=== PATIENT | female | born 1995 | race Two or more races ===

== ENCOUNTER 2023-01-30 08:17 | Emergency (ER) | payer OTHER ==
[~2023-01-30] VITALS: Ht 165.1 cm; Wt 95.3 kg
[2023-01-30] MEDS ORDERED: AZELASTINE137 MCG/0. NS (08:48)
[2023-01-30] MEDS ORDERED: SPRINTEC 28 DA1 EACH PO (08:48)
[2023-01-30] MEDS ORDERED: CONCERTA36 MG PO (08:49)
[2023-01-30] MEDS ORDERED: LEVALBUTER1.25 MG/3 IH (08:49)
== END 2023-01-30 13:21 | disposition home or self-care (01) ==
LOC: ER 08:17
DX: I10 Essential (primary) hypertension (principal); R07.89 Other chest pain; G44.89 Other headache syndrome; I45.6 Pre-excitation syndrome; Z88.0 Allergy status to penicillin; Z91.013 Allergy to seafood